=== PATIENT | female | born 1995 ===

== ENCOUNTER 2017-06-02 13:46 | Emergency (ER) | payer MEDICAID ==
[2017-06-02 14:06] VITALS: BP 117/72; PULSE 89; RESP 20; TEMP 99; O2SAT 96
[2017-06-02] MEDS ORDERED: Dexamethasone 4 mg/1 ml IM STA (14:37)
[2017-06-02] MEDS ORDERED: Albuterol-Ipratrop 3 mg / 0.5 (3 ml) UD INH STA ×2 (14:37→16:18)
[2017-06-02] MEDS ORDERED: Albuterol 0.083% Inhal Sol (2.5 mg/3 mL) UD INH STA (14:37)
[2017-06-02] MEDS ORDERED: guaiFENesin 200 mg/10 ml Syrup UD PO ONE (14:45)
--- NOTE | 2017-06-02 14:46 | ED PDOC ---
HPI: Influenza Time Seen by Provider: 06/02/17 14:08 Chief Complaint: Cough, Cold, Congestion Chief Complaint (Provider): Cough, Congestion History Per: Patient Exam Limitations: no limitations Have you had recent travel within the past 21 days to any of: No Onset/Duration Of Symptoms: Days (x 5 ) Symptoms include: fever (tMax 101), sore throat, cough, vomiting (post-tussive) , chest pain (associated with cough) Sick Contacts (Context): None Additional complaint(s):: 22 year old female presents to the ED with complaints of cough and congestion beginning 5 days ago. Patient states associated symptoms are sore throat, bilateral ear pain, chest pain exclusively with coughing, fever three days ago of 101.0, and 5 episodes of non-bloody, non-bilious post tussive vomiting beginning this morning, prompting ED visit. Patient states she has last taken Mucinex 5 hours prior to arrival. Patient reports family members are smokers and is exposed to second hand smoke. Denies history of asthma, any sick contacts , recent travel, diarrhea, abdominal pain, calf pain, calf tenderness, and calf swelling. PMD: None LNMP: Today Past Medical History Reviewed: Historical Data, Nursing Documentation, Vital Signs Vital Signs: Last Vital Signs Temp 99.0 F 06/02/17 14:04 Pulse 89 06/02/17 14:04 Resp 20 06/02/17 14:04 BP 117/72 06/02/17 14:04 Pulse Ox 96 06/02/17 14:04 - Medical History PMH: No Chronic Diseases Denies: Asthma - Surgical History Surgical History: No Surg Hx - Family History Family History: States: Unknown Family Hx - Living Arrangements Living Arrangements: With Family - Social History Current smoker - smoking cessation education provided: No Alcohol: None Drugs: Denies - Home Medications Home Medications: Ambulatory Orders Medication Instructions Recorded Albuterol HFA [Ventolin HFA 90 1 puff IH Q4 #1 inhaler 06/02/17 mcg/actuation (8 g)] Ibuprofen [Motrin Tab] 600 mg PO Q6 #20 tab 06/02/17 Promethazine DM [Phenergan DM 5 ml PO Q6 PRN #150 ml 06/02/17 Syrup] - Allergies Allergies/Adverse Reactions: Allergies Allergy/AdvReac Type Severity Reaction Status Date / Time Penicillins Allergy ANAPHYLAXIS Verified 06/02/17 14:03 Review of Systems ROS Statement: Except As Marked, All Systems Reviewed And Found Negative Constitutional: Positive for: Fever (tMax 101.0 three days prior ) ENT: Positive for: Ear Pain, Throat Pain Cardiovascular: Positive for: Chest Pain (with exclusive coughing) Respiratory: Positive for: Cough Gastrointestinal: Positive for: Vomiting (non-bloody, non-bilious post tussive) Physical Exam - Reviewed Nursing Documentation Reviewed: Yes Vital Signs Reviewed: Yes - Physical Exam Comments: GENERAL: Patient awake, alert, and oriented x3. No acute distress noted. SKIN: Warm, dry; (-) cyanosis. EYES: (-) conjunctival pallor. ENMT: Mucous membranes moist. TMs: (-) bulging and (-) erythema Airway patent : (-) stridor. Pharynx: (-) swelling, (+) erythema, (-) exudate, (+) uvula midline, (+) bilateral clear rhinorrhea, NECK: Supple, FROM (-) tenderness, (-) stiffness CHEST AND RESPIRATORY: (+) scattered rhonchi, (-) rales, (+) faint inspiratory wheezes on the right side, (-) pleural rub; breath sounds equal bilaterally. Speaking in full sentences, respirations even and nonlabored. HEART AND CARDIOVASCULAR: (-) irregularity; (-) murmur, (-) gallop. ABDOMEN AND GI: Soft; (-) tenderness (-) guarding. EXTREMITIES: (-) deformity; (-) edema. NEURO AND PSYCH: Mental status as above. Cranial nerves grossly intact; strength symmetric. Ambulatory in ED with a steady gait. Medical Decision Making Medical Decision Making: Clinical Impression: Cough, Congestion, likely viral bronchitis; Post-tussive vomiting Plan: -- CXR -- Throat culture -- Rapid Strep -- Re-evaluation CXR reviewed, radiology report follows: FINDINGS: LINES AND TUBES: None. LUNG AND PLEURA: The lungs are well inflated and clear. HEART AND MEDIASTINUM: The heart is not enlarged. The hilar and mediastinal contours are within normal limits. SKELETAL STRUCTURES: The bony structures are within normal limits for the patient's age. VISUALIZED UPPER ABDOMEN: Normal. OTHER FINDINGS: None. IMPRESSION: No active pulmonary disease. Rapid Strep: Negative On re-evaluation, patient reports improvement of symptoms, denies any SOB or chest pain. On exam, patient remains AAOx3, in no acute distress. On exam, neck is supple, lungs CTA, cardiac RRR, abdomen is soft and non-tender, neuro exam shows no focal findings. VSS. Diagnostic results d/w the patient in great detail. Dx of cough, congestion, viral URI/bronchitis d/w the patient. Based on history, exam and diagnostic results plan will be for outpatient follow up. Advised to follow up with primary care physician in 1-2 days without fail. Advised to take medication as prescribed. Return to the emergency room at any time for any new or worsening symptoms. Patient states she fully agrees with and understands discharge instructions. States that she agrees with the plan and disposition. Verbalized and repeated discharge instructions and plan. I have given the patient opportunity to ask any additional questions. Documented by Kehinde Wiseman, acting as a scribe for Maryellen Shaffer PA-C . Provider Scribe Attestation: All medical record entries made by the Scribe were at my direction and personally dictated by me. I have reviewed the chart and agree that the record accurately reflects my personal performance of the history, physical exam, medical decision making, and the department course for this patient. I have also personally directed, reviewed, and agree with the discharge instructions and disposition. - Laboratory Results Urine POC: Negative - ECG O2 Sat by Pulse Oximetry: 96 (RA) Pulse Ox Interpretation: Normal Disposition - Clinical Impression Clinical Impression: Common cold, Viral URI with cough, Bronchitis - Patient ED Disposition Is Patient to be Admitted: No Counseled Patient/Family Regarding: Studies Performed, Diagnosis, Need For Followup, Rx Given - Disposition Referrals: [facility] [place] [Outside] Disposition: Routine/Home Disposition Time: 17:37 Condition: STABLE Prescriptions: Albuterol HFA [Ventolin HFA 90 mcg/actuation (8 g)] 1 puff IH Q4 #1 inhaler Ibuprofen [Motrin Tab] 600 mg PO Q6 #20 tab Promethazine DM [Phenergan DM Syrup] 5 ml PO Q6 PRN #150 ml PRN Reason: Cough Instructions: Cough in Adults, Viral Upper Respiratory Infection, Adult (DC), Acute Bronchitis, Cough, Runny Nose, and the Common Cold Forms: [employer] (Kenyan) Print Language: SOUTH AFRICAN - POA Present On Arrival: None Results - Lab Results Lab Results: 06/02/17 15:27 Grp A Beta Strep Ag Negative
[2017-06-02] MEDS ORDERED: Dexamethasone 4 mg/1 ml ONE (14:53)
[2017-06-02] MEDS ORDERED: Albuterol-Ipratrop 3 mg / 0.5 (3 ml) UD ONE (14:54)
[2017-06-02] MEDS ORDERED: guaiFENesin 100 mg/5 ml Syrup UD ONE (15:39)
== END 2017-06-02 17:50 | disposition home or self-care (01) ==
LOC: H.ER 13:46
DX: J40 Bronchitis, not specified as acute or chronic (principal); J06.9 Acute upper respiratory infection, unspecified; Z88.0 Allergy status to penicillin
CPT/HCPCS: 71046; 81025; 87070; 87430; 96372; 99282; J1100